=== PATIENT | female | born 1980 | race Caucasian/White ===

== ENCOUNTER 2024-02-25 12:23 | Outpatient (CLI) | payer OTHER, SELFPAY ==
--- NOTE | ~2024-02-25 | XR_ITS ---
Exam: Abdomen 2V HISTORY: Lt uretal stone, INTERMITTENT PAIN COMPARISON: None. TECHNIQUE: Supine images of the abdomen and pelvis. FINDINGS: Bowel gas pattern is non-obstructive. There is no free air or deep sulci. 5 mm teardrop shaped focus projecting over the left renal pelvis. Multiple phleboliths within the pelvis. No calcifications projecting over the right kidney or along the expected course of the bilateral uret ers. Lung bases are unremarkable. Bones and soft tissues are unremarkable. IMPRESSION: Nonspecific, nonobstructive bowel gas pattern. Possible 5 mm calculus projecting over the left renal pelvis without additional abnormal collections bilaterally. Reviewed, dictated and finalized at location A.
== END 2024-02-25 12:24 | disposition home or self-care (01) ==
PROVIDERS: PCP Family Medicine; Visit Provider Nurse Practitioner Family
DX: N20.1 Calculus of ureter (principal)
CPT/HCPCS: 74018

== ENCOUNTER 2024-02-27 09:25 | Outpatient (CLI) | payer OTHER, SELFPAY ==
--- NOTE | 2024-02-27 09:44 | ECG_ITS ---
Test Date: 2024-02-27 09:51:25 Measurements Intervals [place] Rate: 65 P: 55 AK: 156 QRS: 13 QRSD: 96 T: 9 QT: 383 QTc: 398 Interpretive Statements SINUS RHYTHM WITH SINUS ARRHYTHMIA LOW QRS VOLTAGE NONSPECIFIC T-WAVE ABNORMALITY ABNORMAL ECG No previous ECG available for comparison Electronically Signed On 02-27-2024 16:05:26 CDT by Efra Trivedi M.D.
[2024-02-27 09:59] LABS: Partial Thromboplastin Time 25.2 Seconds (22.3-36.8)
[2024-02-27 10:04] LABS: Add Urine Microscopic? NO; Appearance Urine Clear (Clear); Bacteria Urine None Seen /hpf; Bilirubin Urine Negative (Negative); Blood Urine Non-Hemolyzed Trace (Negative); Color Urine Yellow (Yellow); Glucose Urine UA Negative (Negative); Ketones Urine Negative (Negative); Leukocyte Esterase Ur Negative LEU/UL (Negative); Nitrate Urine Negative (Negative); Non Pathogenic Casts 0-2; Protein Urine Negative (Negative); RBC Urine 0-2 /hpf (0-2); Specific Grav Ur 1.003 (1.001-1.035); Squamous Epithelial Cell Urine None Seen /hpf (Few); Urobilinogen Urine 0.2 mg/dL (<2.0); WBC Urine 0-5 /hpf (0-3); pH Urine 7.5 (5.0-9.0)
[2024-02-27 10:20] LABS: Prothrombin Time 13.7 Seconds (11.1-14.7)
== END 2024-02-27 09:26 | disposition home or self-care (01) ==
LOC: ANHLAB 09:28
PROVIDERS: PCP Family Medicine; Referring Provider Anesthesiology; Visit Provider Urology
DX: Z01.818 Encounter for other preprocedural examination (principal); N20.0 Calculus of kidney; I10 Essential (primary) hypertension; R94.31 Abnormal electrocardiogram [ECG] [EKG]
CPT/HCPCS: 36415; 81003; 85610; 85730; 93005

== ENCOUNTER 2024-02-28 03:19 | Day surgery (SDC) | payer OTHER, SELFPAY ==
[2024-02-26 09:57] VITALS: BMI 31.2
--- NOTE | 2024-02-26 10:06 | PC.NURSE ---
Report to the Outpatient Waiting Room, entrance under the green pavilion located off [facility], at time _0930_ on date _[id number]_. Planned Procedure Time: _1130_.? Time changes happen often and if your time is changed the preop area will call you the afternoon before. - You and your visitor will be asked to self-screen and do not enter if you have any COVID symptoms. Please call surgeon if you need to reschedule. - A mask is optional within the hospital at this time. Patients may have clear liquids (water, carbonated beverages, clear teas, apple juice) until 3 hours prior to surgery with a maximum of 20 ounces. - No food from midnight until time of surgery and no smoking Take only the following medications with a SIP of water on the morning of surgery: __None DO NOT STOP ANY OF YOUR OTHER PRESCRIPTION MEDICATIONS PRIOR TO SURGERY EXCEPT THE FOLLOWING Medications to discontinue per physician ____None Please no make-up, nail stateless, hairspray, perfume, deodorant, or body powder the day of surgery.? No jewelry (including any body piercings) or valuables the day of surgery, leave them at home.? Please take a shower or bath the night before, or the morning of, surgery with an antibacterial soap.? Wear comfortable, loose fitting clothing.? - Jewelry must be removed prior to entering the operating room.? Rings and piercings that are not removed may be cut off. - The hospital will not accept responsibility for valuables.? - Please leave all valuables, including medications, at home the day of surgery. If you are going home after surgery, a licensed hook up driver must drive you home.? - NO public transportation without another adult if you receive anesthesia. - We recommend that an adult stay with you for 24 hours following discharge. - We also recommend that you do not drive, make important decision, drink alcoholic beverages, or take any drugs that were not prescribed by your health care provider for at least 24 hours after your discharge time. Follow any additional instructions given to you from your surgeon. Telephone instructions given to __Halley__and asked if any additional questions and then verbalized understanding. Patient advised to call surgeon office or pre surgery nurse liaison [phone] if any additional questions.
[2024-02-28] VITALS (7 sets, daily range): BP systolic 109–154; BP diastolic 70–95; PULSE 55–71; RESP 12–16; TEMP 36.6–36.7; O2SAT 100
--- NOTE | ~2024-02-28 | XR_ITS ---
Exam: Abdomen 2V HISTORY: ESWL COMPARISON: 02/25/2024 TECHNIQUE: Supine images of the abdomen and pelvis. FINDINGS: Bowel gas pattern is non-obstructive. There is no free air or deep sulci. Redemonstration of a 5 mm density projecting to the left of midline over the mid abdomen. No additional calcifications are appreciated. Lung bases are unremarkable. Bones and soft tissues are unremarkable. IMPRESSION: Nonspecific, nonobstructive bowel gas pattern. 5 mm density projecting to the left of midline over the mid abdomen, as detailed above. Reviewed, dictated and finalized at location A. IMPRESSION: Nonspecific, nonobstructive bowel gas pattern. 5 mm density projecting to the left of midline over the mid abdomen, as detaile d above.
--- NOTE | 2024-02-28 06:33 | WPDHPUPDATE1 ---
History and Physical Update Update Date/Time: 02/28/24 06:33 History and Physical has been reviewed, including an updated exam of the patient. There are NO changes in the patient's condition. Risks, benefits, and alternatives have been discussed and questions answered. Patient agrees to proceed with procedure.
--- NOTE | 2024-02-28 10:04 | WPDANESEPPF ---
Anes - Initial Pre Proc Eval Procedure: Operation Date: 02/28/24 11:30 Proposed Procedures p Left Extracorporeal Shock Wave Lithotripsy - Anthony Cline MD s Cystoscopy with Left Stent Placement - Anthony Cline MD Date/Time: 02/28/24 10:04 Surgeon: Anthony Cline MD Pre Op Diagnosis: Lt Ureteral Stone Patient Data Age: 43 Gender: F Height: 1.6 m Weight: 80 kg Allergies Allergy/AdvReac Type Severity Reaction Status Date / Time No Known Allergies Allergy Verified 02/26/24 09:56 Home Medications Medication Instructions Recorded Confirmed Type metoprolol succinate 25 mg 25 mg PO HS 02/26/24 02/26/24 History tablet,extended release 24 hr Patient hx anesthesia problems: none Family hx anesthesia problems: none Results Review: All pre-operative results and documents have been reviewed as part of the pre-operative evaluation. [facility] Past Medical History Medical History (Updated 02/28/24 @ 10:09 by Chris Banks DO) Hypertension Social History Social History Years smoked: 20 Smoking status: Current every day smoker Tobacco type: cigarettes Living arrangements: with family Spiritual care concerns: No Anes - Eval Final PreProcedure Day of Procedure 02/28/24 10:04 Patient weight: obese Heart: regular rate and rhythm Lungs: clear to auscultation Airway: Mallampati scale class II Neurological: alert and oriented Last oral intake: >/= 8 hours ASA classification: III Emergent: no Anesthetic plan: proceed Anesthesia type and monitoring: general LMA and standard monitoring Results Review: All pre-operative results and documents have been reviewed as part of the pre-operative evaluation. Informed Consent: The patient's anesthetic plan and its attendant risks and benefits were discussed with the patient/family/POA. Questions were solicited and answers provided to the satisfaction of the patient/family/POA.
[2024-02-28] MEDS: LACTATED RINGERS 1,000 ML 30 ML IV CONT (10:30)
[2024-02-28] MEDS: ceFAZolin 2 GM/D5W 50 ML 2 GM/50 ML BAG IVPB (11:26)
--- NOTE | 2024-02-28 12:18 | W.PM.PROC2 ---
Procedure Note - Detailed Date of Procedure 02/28/24 Pre-op Diagnosis Lt Ureteral Stone Post-op Diagnosis Same Procedure Performed Left ESWL Surgeon Anthony Cline MD Anesthesia General Description of Procedure The patient was brought to the operative suite where she was placed in the supine position on the [place] lithotripsy table. The focal point of the lithotripter was placed at a 5-6mm left proximal ureteral calculus. A total of 3000 shocks were delivered at a power setting of 4. There appeared to be good fragmentation of the stone. The patient tolerated the procedure well and was taken to the recovery room in good condition. Drains No Packing No Pathology None sent Complications No immediate complications Condition Stable Disposition PACU
[2024-02-28] MEDS: ACETAMINOPHEN 500 MG TABLET 1000 MG PO (13:09)
== END 2024-02-28 13:58 | disposition home or self-care (01) ==
PROVIDERS: PCP Family Medicine; Visit Provider Urology
PROC: (CPT 50590; principal; 2024-02-28 11:30)
DX: N20.1 Calculus of ureter (principal); I10 Essential (primary) hypertension; F17.210 Nicotine dependence, cigarettes, uncomplicated; E66.9 Obesity, unspecified; Z68.30 Body mass index [BMI] 30.0-30.9, adult
CPT/HCPCS: 50590; 36415; 74018; 81003; 85610; 85730; 93005; A9270; J0690; J1100; J2003; J2405; J2704; J3010; J7120

== ENCOUNTER 2024-03-10 12:17 | Outpatient (CLI) | payer OTHER, SELFPAY ==
--- NOTE | ~2024-03-10 | XR_ITS ---
XR abdomen/kub 1V 03/10/2024 12:37 INDICATION: Left ureteral stone TECHNIQUE: KUB COMPARISON: None FINDINGS: Bowel gas pattern is normal. There is no evidence of free air, mass, organomegaly, ascites or obstruction. Possible distal left ureteral stone. There are several phleboliths. Bowel gas patter n nonobstructive. The bones appear intact. IMPRESSION: 1: Possible distal left ureteral stone. Consider correlation with CT.. Reviewed, dictated and finalized at location B.
== END 2024-03-10 12:18 | disposition home or self-care (01) ==
LOC: ANHIMG 12:19
PROVIDERS: PCP Family Medicine; Visit Provider Urology
DX: N20.1 Calculus of ureter (principal)
CPT/HCPCS: 74018